=== PATIENT | male | born 1995 | race Caucasian/White ===

== ENCOUNTER 2016-10-25 15:40 | Emergency (ER) | payer MEDICAID, OTHER ==
[~2016-10-25] VITALS: Ht 177.8 cm; Wt 78.0 kg
[~2016-10-25 15:40] MED LIST: ABIL15TA2 PO; GUAN2ER PO; VIST50CA PO
[2016-10-25 16:06] VITALS: BP 136/63; PULSE 70; RESP 20; TEMP 98.1; O2SAT 98
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
[2016-10-25 17:08] LABS: AUTOMATED NEUTROPHIL # 3.8 TH/MM3 (1.8-7.7); BASOPHIL % 0.2 % (0.0-2.0); EOSINOPHIL % 0.4 % (0.0-4.0); HEMATOCRIT 43.4 % (39.0-51.0); HEMO FLAGS DIFF FINAL; LYMPH % 34.1 % (9.0-44.0); LYMPHOCYTE # 2.3 TH/MM3 (1.0-4.8); MEAN CELL VOLUME 86.2 FL (80.0-100.0); MEAN CORPUSCULAR HEMOGLOBIN 29.6 PG (27.0-34.0); MEAN CORPUSCULAR HGB CONC 34.3 % (32.0-36.0); MONO % 8.5 % (0.0-8.0); NEUT % 56.8 % (16.0-70.0); PLATELET COUNT 163 TH/MM3 (150-450); RED BLOOD COUNT 5.03 MIL/MM3 (4.50-5.90); RED CELL DISTRIBUTION WIDTH 13.4 % (11.6-17.2); WHITE BLOOD COUNT 6.8 TH/MM3 (4.0-11.0)
[2016-10-25 17:30] LABS: AMPHETAMINE, URINE NEG (NEG); BARBITURATES, URINE NEG (NEG); COCAINE, URINE NEG (NEG)
[2016-10-25 17:34] LABS: ALT (GPT) 34 U/L (12-78); ANION GAP 8 MEQ/L (5-15); AST (GOT) 21 U/L (15-37); BICARBONATE 27.5 MEQ/L (21.0-32.0); BLOOD UREA NITROGEN 13 MG/DL (7-18); CHLORIDE 107 MEQ/L (98-107); GLOMERULAR FILTRATION RATE 95 ML/MIN (>89); POTASSIUM 3.9 MEQ/L (3.5-5.1); SODIUM (NA) 142 MEQ/L (136-145)
[2016-10-25 17:36] LABS: ALKALINE PHOSPHATASE 93 U/L (45-117); TOTAL BILIRUBIN ADULT 0.3 MG/DL (0.2-1.0)
[2016-10-25 18:25] VITALS: BP 128/78; PULSE 78; RESP 18; O2SAT 98
[2016-10-25] MEDS ORDERED: GUAN2ER PO (18:37)
[2016-10-26 03:00] VITALS: BP 143/70; PULSE 99; RESP 16; O2SAT 98
[2016-10-26 08:00] VITALS: BP 130/63; PULSE 100; RESP 16; O2SAT 98
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
== END 2016-10-26 15:40 | disposition home or self-care (01) ==
LOC: NEPD 15:40
DX: F84.0 Autistic disorder (principal)
CPT/HCPCS: 80053; 80307; 85025; 99284